=== PATIENT | female | born 1995 | race Caucasian/White ===

== ENCOUNTER 2020-06-27 14:17 | Outpatient (REF) | payer OTHER, SELFPAY ==
[2020-06-27 16:26] LABS: MANUAL DIFF FLAG NO
[2020-06-27 16:37] LABS: Basophils Percent Auto 0.5 % (0-2); Eosinophils Absolute Auto 0.2 X10*3/uL (0.0-0.4); Eosinophils Percent Auto 4.5 % (0-4); Hemoglobin 11.8 g/dl (12.0-16.0); Imm Gran Abs Auto 0.01 X10*3/uL (0.00-0.03); Imm Gran Pct Auto 0.2 % (0.0-0.4); Lymphocytes Absolute Auto 1.7 X10*3/uL (1.2-4.9); Lymphocytes Percent Auto 39.4 % (20-40); Mean Corpuscular HGB Conc 33.7 g/dl (31.0-35.0); Mean Corpuscular Volume 83.1 fL (80-98); Mean Platelet Volume 11.2 fL (9.4-12.3); Monocytes Absolute Auto 0.4 X10*3/uL (0.1-1.2); Monocytes Percent Auto 8.3 % (2-11); Neutrophils Percent Auto 47.1 % (45-73); Platelet Count 233 X10*3/uL (160-400); Red Blood Count 4.21 X10*6/uL (4.20-5.50); Red Cell Distribution Width 12.6 % (11.0-16.0); White Blood Count 4.2 X10*3/uL (4.8-10.8)
[2020-06-27 17:15] LABS: Alanine Aminotransferase 9 U/L (0-31); Albumin Level 4.5 g/dL (3.5-5.0); Alkaline Phosphatase 51 U/L (39-117); Anion Gap 14 (12-20); Aspartate Amino Transferase 14 U/L (5-31); Bilirubin Total 0.4 mg/dL (0.0-1.0); Blood Urea Nitrogen 10 mg/dL (9-16); Calcium 9.2 mg/dL (8.4-10.2); Carbon Dioxide 26 mmol/L (22-29); Chloride 104 mmol/L (96-108); Cholesterol 183 mg/dL; Estimated Glomerular Filt Rate > 60; Glucose Random 67 mg/dL (60-115); Potassium 4.3 mmol/l (3.3-5.1); Sodium 140 mmol/L (135-145); Total Protein 7.4 g/dL (6.5-8.0)
[2020-06-27 17:24] LABS: Glucose Urine UA NEG (NEG); Leukocyte Esterase Urine NEG (NEG); Nitrite Urine NEG (NEG); Urine Blood NEG (NEG); Urine Ketones NEG (NEG); Urine Protein NEG (NEG-TRACE)
[2020-06-27 17:30] LABS: Appearance Urine HAZY; Color Urine YELLOW
[2020-06-27 17:36] LABS: TSH reflex Free T4 0.53 mIU/mL (0.32-4.0)
[2020-06-27 17:42] LABS: Creatinine Urine 134.08 mg/dL; Microalbum/Creatinine Ratio Ur 9.6 ug/mg cr
== END 2020-06-27 14:18 | disposition home or self-care (01) ==
LOC: HO.LAB 14:17
PROVIDERS: PCP Internal Medicine; Visit Provider Internal Medicine
DX: Z00.00 Encounter for general adult medical examination without abnormal findings (principal); Q60.0 Renal agenesis, unilateral
CPT/HCPCS: 36415; 80053; 81003; 82043; 82465; 84443; 85025

== ENCOUNTER 2020-07-25 14:03 | Outpatient (REF) | payer OTHER, SELFPAY ==
--- NOTE | ~2020-07-25 | US_ITS ---
EXAMINATION: US RETROPERITONEAL LIMITED (RENAL ONLY) CLINICAL INFORMATION: Renal agenesis, unilateral. COMPARISON: None TECHNIQUE: Real-time imaging of the kidneys. FINDINGS: RIGHT KIDNEY: 4.8 x 2.3 x 3.1 cm (SAG x AP x TRV). The kidney is small with renal cortical thinning. No renal stone, mass or hydronephrosis is seen. LEFT KIDNEY: 12.9 x 5.4 x 5.8 cm (SAG x AP x TRV). The kidney is normal in size, contour, and echogenicity. Renal cortical thickness is normal. No calculi or focal parenchymal lesions. No hydronephrosis. US/US renal BI IMPRESSION: Small right kidney. Normal left kidney.
== END 2020-07-25 14:04 | disposition home or self-care (01) ==
LOC: HO.HMGCX 14:03
PROVIDERS: PCP Internal Medicine; Visit Provider Internal Medicine
DX: Q60.0 Renal agenesis, unilateral (principal)
CPT/HCPCS: 76775